=== PATIENT | female | born 1955 | race Caucasian/White ===

== ENCOUNTER 2016-06-25 06:18 | Day surgery (SDC) | payer MEDICARE, OTHER ==
[~2016-06-25] VITALS: Ht 165.1 cm; Wt 68.8 kg
[2016-06-25 07:42] VITALS: Ht 165.1 cm; Wt 68.8 kg
[2016-06-25] MEDS ORDERED: ENAL10TA PO (07:51)
[2016-06-25] MEDS ORDERED: DIVA-16 PO (07:51)
[2016-06-25] MEDS ORDERED: OXCA300T41 PO (07:51)
[2016-06-25] MEDS ORDERED: HALO10TA PO (07:51)
[2016-06-25] MEDS ORDERED: DONE10TA33 PO (07:51)
[2016-06-25] MEDS ORDERED: GABA300C16 PO (07:51)
[2016-06-25] MEDS ORDERED: BENZ2AMP3 IJ (07:51)
[2016-06-25] MEDS ORDERED: latuda PO (07:51)
[2016-06-25] MEDS ORDERED: amlodipine PO (07:51)
[2016-06-25 08:00] VITALS: BP 107/56; PULSE 57; RESP 18
[2016-06-25] MEDS ORDERED: LIDOCAINE 4% SOLUTION 50 ML BTL ONE (08:14)
[2016-06-25] MEDS ORDERED: MIDAZOLAM 1 MG/ML 2 ML INJ ONE ×2 (09:36→09:37)
[2016-06-25] MEDS ORDERED: FENTAnyl 50 MCG/ML VIAL ONE (09:37)
[2016-06-25 09:42] VITALS: BP 80/56; RESP 20
--- NOTE | 2016-06-25 11:28 | GILP ---
DATE OF PROCEDURE: 06/25/2016 PROCEDURE: Esophagogastroduodenoscopy. PREOPERATIVE DIAGNOSIS: Patient presenting with a history of chronic abdominal pain and anemia, rul e out peptic ulcer disease, gastritis, esophagitis. POSTOPERATIVE DIAGNOSES: 1. Mild reflux esophagitis, [place] classification A. 2. Mild mid body gastritis. DESCRIPTION OF PROCEDURE: After the informed written consent was obtained, the patient was asked to lie on the left lateral side, 2 mg Versed and 50 mcg of fentanyl was given as intravenous anesthesi a. When the patient became somnolent, the Olympus video upper endoscope was introduced into the orophar ynx and then into the esophagus. Esophagus showed evidence of raised in the hyperemic picture in an irregular fashion starting from the GE junction for about 1 the patient 1.5 cm in height. Multiple biopsies were obtained to rule out Cao's esophagus. Scope at this time was advanced into the s tomach. Stomach showed evidence of a few areas of erythema in the mid body of the stomach consisten t with a mild gastritis. Fundic gland were noted in the fundus of the stomach. Biopsy was done from the antrum, the lesser curvature in the fundus to rule out H. pylori infection. Duodenum was exami sharri up to the end of the third portion. Scope at this time was withdrawn and no additional abnormal ities detected and the procedure was terminated. PLAN: Recommend Protonix 40 mg a day for 2 months. Wait for the pathology report for H pylori. Dictated By: IAN WATSON/NTS Conf#: [id number] DID#: [id number] CC: ; IAN ZUNIGA MD;*EndCC*
--- NOTE | 2016-06-25 11:50 | GILP ---
DATE OF PROCEDURE: 06/25/2016 NAME OF PROCEDURE: Colonoscopy and polypectomy. SURGEON: Patrice Ballard MD PREOPERATIVE DIAGNOSIS: A patient presenting with history of anemia and constipation, rule out colo rectal neoplasm. POSTOPERATIVE DIAGNOSES: 1. About 8 mm lobulated polyp on a stalk noted at 30 cm from the anus. Polypectomy was performed. 2. Minimal to moderate degree of diverticulosis. 3. Minimal hemorrhoids. DESCRIPTION OF PROCEDURE: After the informed written consent was obtained, the patient was asked to lie on the left lateral side, 4 mg Versed and 75 mcg of fentanyl was given as intravenous anesthesi a. When the patient became somnolent, the Olympus video colonoscope was introduced into the rectum and scope was advanced all the way to the cecum. At 30 cm from the anus, there is evidence of a 6 to 7 mm lobulated polyp on a stalk was noted. By using the hot snare, polypectomy was performed and poly p was retrieved and sent for histopathology. Rest of the colon showed occasional diverticula. No a dditional abnormalities detected up to the cecum. On the way out, minimal external hemorrhoids were noted and the procedure was terminated. PLAN: Recommend wait for the pathology report and recommend colonoscopy maybe in 2 to 3 years. Dictated By: PATRICE BALLARD MD [place]/NTS Conf#: [id number] DID#: [id number] CC: GILBERTO GARCIA MD; PATRICE BALLARD MD;*End*
== END 2016-06-25 08:00 | disposition home or self-care (01) ==
LOC: GIL 06:18
PROVIDERS: ATTEND Internal Medicine Gastroenterology
DX: K21.0 Gastro-esophageal reflux disease with esophagitis (principal); K29.50 Unspecified chronic gastritis without bleeding; K22.70 Barrett's esophagus without dysplasia; K57.30 Diverticulosis of large intestine without perforation or abscess without bleeding; D12.6 Benign neoplasm of colon, unspecified; K64.4 Residual hemorrhoidal skin tags; D64.9 Anemia, unspecified; I10 Essential (primary) hypertension; F31.9 Bipolar disorder, unspecified; F41.9 Anxiety disorder, unspecified
CPT/HCPCS: 43239; 45385; J2250; J3010; 88305; 88312; 88313